=== PATIENT | female | born 1955 | race Caucasian/White ===

== ENCOUNTER 2020-10-30 04:05 | Observation (INO) ==
[2020-10-30 04:22] VITALS: BMI 47.2
[2020-10-30 04:41] LABS: BASOPHILS # (AUTO) 0.2 X10^3/uL (0.0-0.1); EOSINOPHILS # (AUTO) 0.1 x10^3/uL (0.0-0.2); EOSINOPHILS % (AUTO) 0.9 % (0.9-2.9); HEMATOCRIT 34.1 % (36.0-47.0); HEMOGLOBIN 11.5 g/dL (12.0-16.0); LYMPHOCYTES # (AUTO) 2.6 X10^3/uL (1.3-2.9); LYMPHOCYTES % (AUTO) 22.4 % (21.0-51.0); MEAN CORPUSCULAR HEMOGLOBIN 30.8 pg (27.0-34.0); MEAN CORPUSCULAR HGB CONC 33.7 g/dL (33.0-35.0); MEAN CORPUSCULAR VOLUME 91.6 fL (80.0-100.0); MEAN PLATELET VOLUME 10.3 fL (7.4-11.0); MONOCYTES % (AUTO) 8.5 % (0.0-13.0); NEUTROPHILS # (AUTO) 7.8 x10^3/uL (2.2-4.8); NEUTROPHILS % (AUTO) 66.2 % (42.0-75.0); PLATELET COUNT 266 X10^3/uL (150.0-450.0); RED BLOOD COUNT 3.72 X10^6/uL (3.5-5.4); RED CELL DISTRIBUTION WIDTH 12.6 % (11.6-16.5); WHITE BLOOD COUNT 11.8 X10^3/uL (3.6-10.0)
[2020-10-30 04:42] LABS: BILIRUBIN,URINE NEGATIVE (NEGATIVE); BLOOD/HEMOGLOBIN,URINE NEGATIVE (NEGATIVE); GLUCOSE, URINE NEGATIVE (NEGATIVE); KETONES,URINE NEGATIVE (NEGATIVE); LEUKOCYTE ESTERASE ,URINE NEGATIVE (NEGATIVE); NITRITES,URINE NEGATIVE (NEGATIVE); PROTEIN,URINE 1+ (NEGATIVE); UROBILINOGEN,URINE NORMAL (NORMAL)
[2020-10-30 04:48] LABS: APPEARANCE,URINE CLEAR (CLEAR); BACTERIA,URINE NEGATIVE /HPF (NEGATIVE); COLOR,URINE YELLOW (YELLOW); RBC,URINE 0-2 /HPF (0-3); SQUAMOUS EPITHELIAL CELL,UR RARE /HPF (NEGATIVE)
[2020-10-30 04:55] LABS: ALANINE AMINOTRANSFERASE 27 Units/L (12-78); ALBUMIN 3.9 g/dL (3.4-5.0); ALKALINE PHOSPHATASE 63 Units/L (46-116); ASPARTATE AMINO TRANSFERASE 28 Units/L (15-37); BLOOD UREA NITROGEN 40 mg/dL (7-18); CALCIUM 9.1 mg/dL (8.5-10.1); CARBON DIOXIDE 26.9 mmol/L (21-32); CHLORIDE 101 mmol/L (98-107); COR NA(FOR HYPERGLY) 140 mmol/L (136-145); CREATININE 2.04 mg/dL (0.55-1.02); SODIUM 139 mmol/L (136-145); TOTAL PROTEIN 7.4 g/dL (6.4-8.2); eGFR NON BLACK RACES 26 (>60)
--- NOTE | 2020-10-30 05:52 | CT ---
STUDY: CT HEAD WITHOUT IV CONTRASTCOMPARISON: NoneTECHNIQUE: axial images were acquired of the head without IV contrast. Coronal and sagittal images were provided. All images were reviewed in a variety of windows and levels.LIMITATIONS: Please note that CT has low sensitivity and accuracy for identifying acute infarction. In addition, there are portions of the brain that are affected by beam hardening artifact which further greatly limits identification of an acute infarct.RADIATION REDUCTION TECHNIQUE: Automated exposure control, Adjustment of the mA and/or kV according to patient size, or iterative reconstruction techniques were used.HISTORY: DIZZINESSFINDINGS: Exam is limited due to patient positioningThere is no evidence of an acute intracranial bleed.There is no evidence of a mass or midline shift.There is no evidence of an extra-axial fluid collection.The argueta-white matter differentiation is within normal limits.The visualized bones are unremarkable.The visualized sinuses are clear.The mastoid air cells are well-aerated.IMPRESSION:THERE IS NO EVIDENCE OF AN ACUTE INTRACRANIAL BLEEDElectronically signed by: Dada Garcia (Oct 30, 2020 05:50:58)
--- NOTE | 2020-10-30 05:54 | CT ---
STUDY: CT LUMBAR SPINE WITHOUT IV CONTRASTCOMPARISON: NoneTECHNIQUE: axial images were acquired of the lumbar spine without IV contrast. Coronal and sagittal images were provided. All images were reviewed in a variety of windows and levels.RADIATION REDUCTION TECHNIQUE: Automated exposure control, Adjustment of the mA and/or kV according to patient size, or iterative reconstruction techniques were used.HISTORY: BACK PAINFINDINGS:There is no evidence of an acute osseous fracture or subluxationThere are no abnormal areas of increased attenuation in the spinal canal to suggest an epidural hematoma.The visualized paraspinal muscles are unremarkable.Postsurgical changes are seen at the L4-L5 and L5-S1 level.Degenerative changes are noted.IMPRESSION:1. NO EVIDENCE OF ACUTE FRACTURE OR SUBLUXATION.Electronically signed by: Dada Garcia (Oct 30, 2020 05:52:12)
--- NOTE | 2020-10-30 07:00 | DR.SOBA ---
HPI Time Seen Time Seen by Provider: 10/30/20 06:57 Primary Care Physician Primary Care Physician: DR. SANCHEZ HPI Comment HPI Comment: Patient presented with the complaint of dizziness, low back pain and vomiting. Son says he brought patient here because she started "talking gibberish" and he became concerned. He notes that patient speaks normally at baseline. Complaints Chief Complaint:: PT STATES "I CAN'T BREATH". STATES SHE IS DIZZY AND HURTING IN HER LOWER BACK. STATES SHE HAS BEEN THROWING UP AT HOME. COVID-19 Coronavirus risk:travel/contact w/high risk person: No Has patient experienced Coronavirus symptoms: No Source History Provided: Patient Mode of Arrival Mode of Arrival: Wheelchair Timing Onset of Chief Complaint: 10/30/20 PMH PMH Past Medical History: Yes Past Medical History: Dyslipidemia, GERD, Headaches and Hypertension Past Surgical History: Yes Surgical History: Appendectomy, Cholecystectomy, [employer] Surgery and Ortho Surgery Family History History of Family Medical Conditions: Yes Family Medical History: Diabetes Mellitus, Cancer, CA, Coronary Artery Disease, Heart Failure and Hypertension Social History Does any household member use tobacco: No Do you use any recreational Drugs:: No Lives Where: Home Travel Risk Coronavirus risk:travel/contact w/high risk person: No Has patient experienced Coronavirus symptoms: No Infectious screening Have you traveled outside the country in the last 6 months?: No Isolation: Standard ROS Review of Systems Constitutional: See HPI Gastrointestinal/Abdominal: Vomiting Neurological: Dizziness Musculoskeletal: Back Pain All Other Systems: Reviewed and Negative PE Vital Signs Vitals: Temperature 98.1 F Pulse Rate 93 Respiratory Rate 10 Blood Pressure 122/87 O2 Sat by Pulse Oximetry 95 General Limitations: No Limitations General Appearance: Alert and In No Apparent Distress Head Head Exam: Normal Inspection, Atraumatic and Normocephalic Eyes Eye exam: Normal Appearance and EOMI ENT ENT Exam: Normal Exam Neck Neck Exam: Normal Inspection and Trachea Midline Chest Chest Inspection: Normal Inspection and Symmetric Chest Wall Rise Respiratory Respiratory Exam: Normal Lung Sounds Bilat Respiratory Exam: Bilateral: Clear to Auscultation Cardiovascular Cardiovascular Exam: Regular Rate, Normal Rhythm and Normal Heart Sounds Abdominal Exam Abdominal Exam: Normal Inspection, Normal Bowel Sounds and Soft Extremities Extremities Exam: Normal Inspection Back Back Exam: Normal Inspection Neurologic Neurological Exam: Alert and Oriented X3 Psychiatric Psychiatric Exam: Agitated Skin Skin Exam: Warm, Dry and Intact COURSE Reevaluation 1st: Improved (patient sleeping comfortably) 2nd: Worsened (patient agitation) Consultation Consultation Comments: spoke with Dr. Gomez who accepts this patient for admission. [facility]OR Labs Reviewed Laboratory Results Reviewed?: Yes Result Diagrams: 10/30/20 04:10 10/30/20 04:10 Laboratory: WBC 11.8 X10^3/uL (3.6-10.0) H 10/30/20 04:10 RBC 3.72 X10^6/uL (3.5-5.4) 10/30/20 04:10 Hgb 11.5 g/dL (12.0-16.0) L 10/30/20 04:10 Hct 34.1 % (36.0-47.0) L 10/30/20 04:10 MCV 91.6 fL (80.0-100.0) 10/30/20 04:10 MCH 30.8 pg (27.0-34.0) 10/30/20 04:10 MCHC 33.7 g/dL (33.0-35.0) 10/30/20 04:10 RDW 12.6 % (11.6-16.5) 10/30/20 04:10 Plt Count 266 X10^3/uL (150.0-450.0) 10/30/20 04:10 MPV 10.3 fL (7.4-11.0) 10/30/20 04:10 Neut % (Auto) 66.2 % (42.0-75.0) 10/30/20 04:10 Lymph % (Auto) 22.4 % (21.0-51.0) 10/30/20 04:10 [place] % (Auto) 8.5 % (0.0-13.0) 10/30/20 04:10 Eos % (Auto) 0.9 % (0.9-2.9) 10/30/20 04:10 Baso % (Auto) 2.0 % (0.2-1.0) H 10/30/20 04:10 Neut # (Auto) 7.8 x10^3/uL (2.2-4.8) H 10/30/20 04:10 Lymph # (Auto) 2.6 X10^3/uL (1.3-2.9) 10/30/20 04:10 [place] # (Auto) 1.0 x10^3/uL (0.3-0.8) H 10/30/20 04:10 Eos # (Auto) 0.1 x10^3/uL (0.0-0.2) 10/30/20 04:10 Baso # (Auto) 0.2 X10^3/uL (0.0-0.1) H 10/30/20 04:10 Absolute Nucleated RBC 0.0 /100WBC 10/30/20 04:10 Sodium 139 mmol/L (136-145) 10/30/20 04:10 Corrected Sodium 140 mmol/L (136-145) 10/30/20 04:10 Potassium 4.5 mmol/L (3.5-5.1) 10/30/20 04:10 Chloride 101 mmol/L (98-107) 10/30/20 04:10 Carbon Dioxide 26.9 mmol/L (21-32) 10/30/20 04:10 BUN 40 mg/dL (7-18) H 10/30/20 04:10 Creatinine 2.04 mg/dL (0.55-1.02) H 10/30/20 04:10 Est GFR (MDRD) Af Amer 32 (>60) L 10/30/20 04:10 Est GFR (MDRD) Non-Af 26 (>60) L 10/30/20 04:10 Glucose 145 mg/dL (65-99) H 10/30/20 04:10 Calcium 9.1 mg/dL (8.5-10.1) 10/30/20 04:10 Corrected Calcium TNP 10/30/20 04:10 Total Bilirubin 0.30 mg/dL (0.2-1.0) 10/30/20 04:10 AST 28 Units/L (15-37) 10/30/20 04:10 ALT 27 Units/L (12-78) 10/30/20 04:10 Alkaline Phosphatase 63 Units/L (46-116) 10/30/20 04:10 Total Protein 7.4 g/dL (6.4-8.2) 10/30/20 04:10 Albumin 3.9 g/dL (3.4-5.0) 10/30/20 04:10 Globulin 3.5 g/dL (2.5-4.5) 10/30/20 04:10 Albumin/Globulin Ratio 1.1 Ratio (1.1-2.1) 10/30/20 04:10 Specimen Type Catherized urine 10/30/20 04:33 Urine Color Yellow (YELLOW) 10/30/20 04:33 Urine Appearance Clear (CLEAR) 10/30/20 04:33 Urine pH 5.0 (5.0 - 8.0) 10/30/20 04:33 Ur Specific [place] 1.020 (1.000-1.030) 10/30/20 04:33 Urine Protein 1+ (NEGATIVE) 10/30/20 04:33 Urine Glucose (UA) Negative (NEGATIVE) 10/30/20 04:33 Urine Ketones Negative (NEGATIVE) 10/30/20 04:33 Urine Occult Blood Negative (NEGATIVE) 10/30/20 04:33 Urine Nitrite Negative (NEGATIVE) 10/30/20 04:33 Urine Bilirubin Negative (NEGATIVE) 10/30/20 04:33 Urine Urobilinogen Normal (NORMAL) 10/30/20 04:33 Ur Leukocyte Esterase Negative (NEGATIVE) 10/30/20 04:33 Urine RBC 0-2 /HPF (0-3) 10/30/20 04:33 Urine WBC 0-2 /HPF (0-5) 10/30/20 04:33 Ur Squamous Epith Cells Rare /HPF (NEGATIVE) 10/30/20 04:33 Urine Bacteria Negative /HPF (NEGATIVE) 10/30/20 04:33 Ur Culture Indicated? No/not indicated 10/30/20 04:33 Urine Opiates Screen Negative (NEG=<300) 10/30/20 04:33 Urine Methadone Screen Negative (NEG=<300) 10/30/20 04:33 Ur Barbiturates Screen Negative (NEG=<200) 10/30/20 04:33 Ur Phencyclidine Scrn Negative (NEG=<25) 10/30/20 04:33 Ur Amphetamines Screen Negative (NEG=<1000) 10/30/20 04:33 U Benzodiazepines Scrn Negative (NEG=<200) 10/30/20 04:33 Urine Cocaine Screen Negative (NEG=<300) 10/30/20 04:33 U Marijuana (THC) Screen Positive (NEG=<50) A 10/30/20 04:33 XRAY X-ray Results: STUDY: CT LUMBAR SPINE WITHOUT IV CONTRAST COMPARISON: None TECHNIQUE: axial images were acquired of the lumbar spine without IV contrast. Coronal and sagittal images were provided. All images were reviewed in a variety of windows and levels. RADIATION REDUCTION TECHNIQUE: Automated exposure control, Adjustment of the mA and/or kV according to patient size, or iterative reconstruction techniques were used. HISTORY: BACK PAIN FINDINGS: There is no evidence of an acute osseous fracture or subluxation There are no abnormal areas of increased attenuation in the spinal canal to suggest an epidural hematoma. The visualized paraspinal muscles are unremarkable. Postsurgical changes are seen at the L4-L5 and L5-S1 level. Degenerative changes are noted. IMPRESSION: 1. NO EVIDENCE OF ACUTE FRACTURE OR SUBLUXATION. Electronically signed by: Dada Garcia (Oct 30, 2020 05:52:12) STUDY: CT HEAD WITHOUT IV CONTRAST COMPARISON: None TECHNIQUE: axial images were acquired of the head without IV contrast. Coronal and sagittal images were provided. All images were reviewed in a variety of windows and levels. LIMITATIONS: Please note that CT has low sensitivity and accuracy for identifying acute infarction. In addition, there are portions of the brain that are affected by beam hardening artifact which further greatly limits identification of an acute infarct. RADIATION REDUCTION TECHNIQUE: Automated exposure control, Adjustment of the mA and/or kV according to patient size, or iterative reconstruction techniques were used. HISTORY: DIZZINESS FINDINGS: Exam is limited due to patient positioning There is no evidence of an acute intracranial bleed. There is no evidence of a mass or midline shift. There is no evidence of an extra-axial fluid collection. The argueta-white matter differentiation is within normal limits. The visualized bones are unremarkable. The visualized sinuses are clear. The mastoid air cells are well-aerated. IMPRESSION: THERE IS NO EVIDENCE OF AN ACUTE INTRACRANIAL BLEED Electronically signed by: Dada Garcia (Oct 30, 2020 05:50:58) Opioid Opioid Risk Tool Age ([place] box if 16-45): No Total: 0 Total Score Risk Category: Low Risk Copyright: [employer] predicting aberrant behaviors Diagnosis Discharge Problem: Marijuana use, Agitation Vomiting Qualifiers: Vomiting type: unspecified Vomiting Intractability: non-intractable Nausea presence: with nausea Qualified Code(s): R11.2 - Nausea with vomiting, unspecified Acute renal failure Qualifiers: Acute renal failure type: unspecified Qualified Code(s): N17.9 - Acute kidney failure, unspecified Instructions Forms: Precautions for COVID19 Patient Portal Social Distancing
[2020-10-30] MEDS ORDERED: NS 1000 ML 1,000 ML IV ONE (07:30)
[2020-10-30] MEDS ORDERED: HALDOL INJ IM ONE (07:30)
[2020-10-30] MEDS ORDERED: HALDOL INJ IM PRN (07:37)
[2020-10-30] MEDS ORDERED: NS 1000 ML 1,000 ML ONE (07:37)
[2020-10-30] MEDS ORDERED: HALDOL INJ ONE ×2 (07:37→07:39)
[2020-10-30] MEDS ORDERED: INDERAL TAB 10 MG PO ONE (08:42)
[2020-10-30] MEDS: NS 1000 ML 1,000 ML IV SCH ×2 (10:50→16:02)
--- NOTE | 2020-10-30 15:36 | DR.H&P ---
H&P History & Physical for Day of: H&P Date: 10/30/20 Chief Complaint Chief Complaint: Altered mental status Acute renal failure Shortness of breath Allergies Allergies Allergy/AdvReac Type Severity Reaction Status Date / Time codeine Allergy Verified 10/30/20 04:34 sulfamethoxazole Allergy Verified 10/30/20 04:34 [From ] trimethoprim [From ] Allergy Verified 10/30/20 04:34 History of Present Illness History of Present Illness: Pt is a 65 year old female past medical history of Hypertension, Arthritis, presenting to the ED with altered mental status. Per ED physician, son states that patient was complaining of dizziness, low back pain, and then started "talking gibberish" when he became concerned. Pt also stated having shortness of breath and was very agitated in the ED to the point she was given haldol to help manage her symptoms. On exam, pt is very sleepy, resting comfortably in bed due to medication. Labs/imaging: Wbc 11.8, Hgb 11.5, Plt 266, Na 139, K 4.5, Creatinine 2.04, Glucose 145, UA negative, Toxicology positive for marijuana, COVID-19 negative, Brain CT: THERE IS NO EVIDENCE OF AN ACUTE INTRACRANIAL BLEED. Lumbar CT: 1. NO EVIDENCE OF ACUTE FRACTURE OR SUBLUXATION. Pt was admitted for altered mental status, marijuana intoxication, and acute renal failure. Pt started on IVF NS 125ml/h, haldol prn for agitation. Will order CXR, Ekg, Troponin, D-dimer, for further evaluation and rule out of infectious process or other causes of shortness of breath. Restart home medications, avoid nephrotoxic medications. Will continue to monitor and follow up labs/imaging. Past Medical History Past Medical History: Dyslipidemia, GERD, Headaches and Hypertension Past Surgical History Surgical History: Cholecystectomy, Joint Replacement and Other Family History Family Medical History: Heart Failure Social History Does any household member use tobacco: No Alcohol Use: None Drug Use: None Medications Home Medications: codeine Allergy (Verified 10/30/20 04:34) sulfamethoxazole [From Decra] Allergy (Verified 10/30/20 04:34) trimethoprim [From Decra] Allergy (Verified 10/30/20 04:34) CONTINUE taking the following medications baclofen 20 mg PO TID 10/30/20 [History] buspirone 30 mg PO TID 10/30/20 [History] cetirizine 10 mg PO DAILY 10/30/20 [History] fenofibrate 160 mg PO DAILY 10/30/20 [History] hydrochlorothiazide 12.5 mg PO DAILY 10/30/20 [History] levocetirizine 5 mg PO DAILY 10/30/20 [History] lidocaine [ZTlido] 1 patch TRANSDERMAL DAILY 10/30/20 [History] montelukast 10 mg PO DAILY 10/30/20 [History] tapentadol [Nucynta ER] 200 mg PO BID 10/30/20 [History] tizanidine 6 mg PO TID PRN 10/30/20 [History] New Prescriptions ondansetron HCl [Zofran] 4 mg PO Q6H PRN #14 tab 10/30/20 [Rx] Labs Result Diagrams: 10/30/20 04:10 10/30/20 04:10 Labs: Laboratory WBC 11.8 X10^3/uL (3.6-10.0) H 10/30/20 04:10 RBC 3.72 X10^6/uL (3.5-5.4) 10/30/20 04:10 Hgb 11.5 g/dL (12.0-16.0) L 10/30/20 04:10 Hct 34.1 % (36.0-47.0) L 10/30/20 04:10 MCV 91.6 fL (80.0-100.0) 10/30/20 04:10 MCH 30.8 pg (27.0-34.0) 10/30/20 04:10 MCHC 33.7 g/dL (33.0-35.0) 10/30/20 04:10 RDW 12.6 % (11.6-16.5) 10/30/20 04:10 Plt Count 266 X10^3/uL (150.0-450.0) 10/30/20 04:10 MPV 10.3 fL (7.4-11.0) 10/30/20 04:10 Neut % (Auto) 66.2 % (42.0-75.0) 10/30/20 04:10 Lymph % (Auto) 22.4 % (21.0-51.0) 10/30/20 04:10 [place] % (Auto) 8.5 % (0.0-13.0) 10/30/20 04:10 Eos % (Auto) 0.9 % (0.9-2.9) 10/30/20 04:10 Baso % (Auto) 2.0 % (0.2-1.0) H 10/30/20 04:10 Neut # (Auto) 7.8 x10^3/uL (2.2-4.8) H 10/30/20 04:10 Lymph # (Auto) 2.6 X10^3/uL (1.3-2.9) 10/30/20 04:10 [place] # (Auto) 1.0 x10^3/uL (0.3-0.8) H 10/30/20 04:10 Eos # (Auto) 0.1 x10^3/uL (0.0-0.2) 10/30/20 04:10 Baso # (Auto) 0.2 X10^3/uL (0.0-0.1) H 10/30/20 04:10 Absolute Nucleated RBC 0.0 /100WBC 10/30/20 04:10 Sodium 139 mmol/L (136-145) 10/30/20 04:10 Corrected Sodium 140 mmol/L (136-145) 10/30/20 04:10 Potassium 4.5 mmol/L (3.5-5.1) 10/30/20 04:10 Chloride 101 mmol/L (98-107) 10/30/20 04:10 Carbon Dioxide 26.9 mmol/L (21-32) 10/30/20 04:10 BUN 40 mg/dL (7-18) H 10/30/20 04:10 Creatinine 2.04 mg/dL (0.55-1.02) H 10/30/20 04:10 Est GFR (MDRD) Af Amer 32 (>60) L 10/30/20 04:10 Est GFR (MDRD) Non-Af 26 (>60) L 10/30/20 04:10 Glucose 145 mg/dL (65-99) H 10/30/20 04:10 POC Glucose (mg/dL) 113 mg/dL (65-99) H 10/30/20 11:49 Calcium 9.1 mg/dL (8.5-10.1) 10/30/20 04:10 Corrected Calcium TNP 10/30/20 04:10 Total Bilirubin 0.30 mg/dL (0.2-1.0) 10/30/20 04:10 AST 28 Units/L (15-37) 10/30/20 04:10 ALT 27 Units/L (12-78) 10/30/20 04:10 Alkaline Phosphatase 63 Units/L (46-116) 10/30/20 04:10 Total Protein 7.4 g/dL (6.4-8.2) 10/30/20 04:10 Albumin 3.9 g/dL (3.4-5.0) 10/30/20 04:10 Globulin 3.5 g/dL (2.5-4.5) 10/30/20 04:10 Albumin/Globulin Ratio 1.1 Ratio (1.1-2.1) 10/30/20 04:10 Specimen Type Catherized urine 10/30/20 04:33 Urine Color Yellow (YELLOW) 10/30/20 04:33 Urine Appearance Clear (CLEAR) 10/30/20 04:33 Urine pH 5.0 (5.0 - 8.0) 10/30/20 04:33 Ur Specific [place] 1.020 (1.000-1.030) 10/30/20 04:33 Urine Protein 1+ (NEGATIVE) 10/30/20 04:33 Urine Glucose (UA) Negative (NEGATIVE) 10/30/20 04:33 Urine Ketones Negative (NEGATIVE) 10/30/20 04:33 Urine Occult Blood Negative (NEGATIVE) 10/30/20 04:33 Urine Nitrite Negative (NEGATIVE) 10/30/20 04:33 Urine Bilirubin Negative (NEGATIVE) 10/30/20 04:33 Urine Urobilinogen Normal (NORMAL) 10/30/20 04:33 Ur Leukocyte Esterase Negative (NEGATIVE) 10/30/20 04:33 Urine RBC 0-2 /HPF (0-3) 10/30/20 04:33 Urine WBC 0-2 /HPF (0-5) 10/30/20 04:33 Ur Squamous Epith Cells Rare /HPF (NEGATIVE) 10/30/20 04:33 Urine Bacteria Negative /HPF (NEGATIVE) 10/30/20 04:33 Ur Culture Indicated? No/not indicated 10/30/20 04:33 Urine Opiates Screen Negative (NEG=<300) 10/30/20 04:33 Urine Methadone Screen Negative (NEG=<300) 10/30/20 04:33 Ur Barbiturates Screen Negative (NEG=<200) 10/30/20 04:33 Ur Phencyclidine Scrn Negative (NEG=<25) 10/30/20 04:33 Ur Amphetamines Screen Negative (NEG=<1000) 10/30/20 04:33 U Benzodiazepines Scrn Negative (NEG=<200) 10/30/20 04:33 Urine Cocaine Screen Negative (NEG=<300) 10/30/20 04:33 U Marijuana (THC) Screen Positive (NEG=<50) A 10/30/20 04:33 SARS-CoV-2 (PCR) Negative (NEGATIVE) 10/30/20 07:30 Influenza Type A (PCR) Negative (NEGATIVE) 10/30/20 07:30 Influenza Type B (PCR) Negative (NEGATIVE) 10/30/20 07:30 RSV (PCR) Negative (NEGATIVE) 10/30/20 07:30 Review of Systems Constitutional: No Symptoms Reported Eyes: No Symptoms Reported ENT: No Symptoms Reported Respiratory: Shortness of Breath Cardiovascular: No Symptoms Reported Gastrointestinal: Nausea and Vomiting Genitourinary: No Symptoms Reported Musculoskeletal: Back Pain Skin: No Symptoms Reported Neurological: Confusion Physical Exam Vital Signs: Temperature 97.5 F Pulse Rate [Left Brachial] 74 Pulse Rate 100 Respiratory Rate 20 Blood Pressure [Left Arm] 147/90 Blood Pressure 150/67 O2 Sat by Pulse Oximetry 92 Oriented: Unable to test (medication sedated) Eyes: Normal Ear: Normal Nose: Normal Throat: Normal Respiratory: Diminished Throughout Cardiovascular: Normal : Normal Auscultation: Bowel Sounds: Normal Palpation: Normal Tenderness: Normal Skin: Normal Musculoskeletal: Normal Psychiatric: Anxiety and Agitation Mood Description: Anxious Affect: Anxious Speech Pattern: Inappropriate Assessment/Plan (1) Altered mental status: Status: Acute (2) Acute renal failure: Qualifiers: Acute renal failure type: unspecified Qualified Code(s): N17.9 - Acute kidney failure, unspecified Status: Acute (3) Agitation: Status: Acute Review H&P Reviewed: Yes Patient was examined?: Yes
[2020-10-30] MEDS ORDERED: BENADRYL INJ 50 MG VIAL IVP ONE (15:45)
--- NOTE | 2020-10-30 20:13 | RAD ---
HISTORYSOBSTUDYCHEST, 1 VIEWCOMPARISONNoneFINDINGSThe trachea is midline. The cardiac silhouette is enlarged. The lungs demonstrate some mild pulmonary vascular congestion suggesting early edema without focal infiltrate or effusion the bony thorax is unremarkable.IMPRESSIONCardiomegaly with mild pulmonary edema.Electronically signed by: DALILA BASSETT (Oct 30, 2020 20:10:31)
[2020-10-31] MEDS: NS 1000 ML 1,000 ML IV SCH ×2 (00:45→09:58)
[2020-10-31 05:59] LABS: BASOPHILS % (AUTO) 0.5 % (0.2-1.0); EOSINOPHILS % (AUTO) 0.3 % (0.9-2.9); HEMATOCRIT 32.9 % (36.0-47.0); HEMOGLOBIN 10.9 g/dL (12.0-16.0); LYMPHOCYTES % (AUTO) 25.4 % (21.0-51.0); MEAN CORPUSCULAR HEMOGLOBIN 30.4 pg (27.0-34.0); MEAN CORPUSCULAR HGB CONC 33.3 g/dL (33.0-35.0); MEAN CORPUSCULAR VOLUME 91.4 fL (80.0-100.0); MEAN PLATELET VOLUME 10.4 fL (7.4-11.0); MONOCYTES # (AUTO) 0.6 x10^3/uL (0.3-0.8); MONOCYTES % (AUTO) 7.5 % (0.0-13.0); NEUTROPHILS # (AUTO) 5.3 x10^3/uL (2.2-4.8); NEUTROPHILS % (AUTO) 66.3 % (42.0-75.0); PLATELET COUNT 227 X10^3/uL (150.0-450.0); RED CELL DISTRIBUTION WIDTH 12.7 % (11.6-16.5); WHITE BLOOD COUNT 8.1 X10^3/uL (3.6-10.0)
[2020-10-31 06:16] LABS: ALANINE AMINOTRANSFERASE 23 Units/L (12-78); ALBUMIN 3.1 g/dL (3.4-5.0); ALKALINE PHOSPHATASE 48 Units/L (46-116); ASPARTATE AMINO TRANSFERASE 31 Units/L (15-37); BLOOD UREA NITROGEN 17 mg/dL (7-18); CALCIUM 8.4 mg/dL (8.5-10.1); CARBON DIOXIDE 23.7 mmol/L (21-32); CHLORIDE 110 mmol/L (98-107); COR CA(FOR HYPOALB) 9.1 mg/dL (8.5-10.1); CREATININE 1.05 mg/dL (0.55-1.02); SODIUM 143 mmol/L (136-145); TOTAL PROTEIN 6.2 g/dL (6.4-8.2); eGFR NON BLACK RACES 56 (>60)
[2020-10-31] MEDS ORDERED: PriLOSEC PO SCH (09:00)
[2020-10-31] MEDS ORDERED: TAPENTADOL 200 MG PO SCH (09:00)
[2020-10-31] MEDS ORDERED: SINGULAIR TAB 10 MG PO SCH (09:00)
[2020-10-31] MEDS ORDERED: ZESTRIL TAB 20 MG PO SCH (09:20)
--- NOTE | 2020-10-31 09:34 | W.DIS.FURT ---
Summary of Discharge Discharge Summary of Date Date of Exam: 10/31/20 Admission Date Date of Admission: 10/30/20 Admission Diagnosis Patient Problems (Updated 10/30/20 @ 15:51 by Jimenez Gomez) Vomiting (Acute) R11.10 Marijuana use (Acute) F12.90 Acute renal failure (Acute) N17.9 Agitation (Acute) R45.1 Hospital Course: Pt is a 65 year old female past medical history of Hypertension, Arthritis, adm itted for altered mental status after complaining of dizziness, low back pain, and then started "talking gibberish", per son to ED physician. Pt also complained of having shortness of breath and was noted significant agitation. Pt received haldol to help manage her symptoms. Labs/imaging: Wbc 8.1, Hgb 10.9, Plt 227, Na 143, K 4, Creatinine 2.04>1.05, Glucose 105, Troponin <0.02, D-dimer 0.53, UA negative, Toxicology positive for marijuana, COVID-19 negative, CXR: Cardiomegaly with mild pulmonary edema. Brain CT: THERE IS NO EVIDENCE OF AN ACUTE INTRACRANIAL BLEED. Lumbar CT: 1. NO EVIDENCE OF ACUTE FRACTURE OR SUBLUXATION. Pt was observed, monitored overnight, and hydrated. Pt alert and oriented x 3 the next morning on discharge. Symptoms likely due to marijuana intoxication. Renal function back to baseline. Pt discharged in stable condition, instructed to follow up with pcp in 3-5 days. Vital Signs: Vital Signs (72 hours) 10/30/20 04:06 10/30/20 04:22 10/30/20 04:30 Temperature 98.1 F Pulse Rate 111 H 109 H 110 H Pulse Rate [Left Brachial] Respiratory Rate 16 54 H 47 H Blood Pressure 122/87 Blood Pressure [Left Arm] O2 Sat by Pulse Oximetry 100 92 L 96 10/30/20 04:45 10/30/20 05:02 10/30/20 05:37 Temperature Pulse Rate 91 H 112 H 97 H Pulse Rate [Left Brachial] Respiratory Rate 11 L 28 H 16 Blood Pressure Blood Pressure [Left Arm] O2 Sat by Pulse Oximetry 96 99 10/30/20 05:45 10/30/20 06:00 10/30/20 06:15 Temperature Pulse Rate 93 H 91 H 97 H Pulse Rate [Left Brachial] Respiratory Rate 10 L 9 L 18 Blood Pressure Blood Pressure [Left Arm] O2 Sat by Pulse Oximetry 95 98 99 10/30/20 06:30 10/30/20 06:45 10/30/20 07:00 Temperature Pulse Rate 85 85 81 Pulse Rate [Left Brachial] Respiratory Rate 10 L 19 15 Blood Pressure Blood Pressure [Left Arm] O2 Sat by Pulse Oximetry 98 96 97 10/30/20 07:15 10/30/20 07:30 10/30/20 07:49 Temperature Pulse Rate 81 123 H 110 H Pulse Rate [Left Brachial] Respiratory Rate 18 51 H 56 H Blood Pressure Blood Pressure [Left Arm] O2 Sat by Pulse Oximetry 98 78 L 100 10/30/20 08:00 10/30/20 08:05 10/30/20 08:15 Temperature 97.6 F Pulse Rate 102 H 101 H Pulse Rate [Left Brachial] 88 Respiratory Rate 22 35 H 46 H Blood Pressure Blood Pressure [Left Arm] 147/90 O2 Sat by Pulse Oximetry 100 10/30/20 08:42 10/30/20 08:45 10/30/20 08:46 Temperature Pulse Rate 94 H 100 H 100 H Pulse Rate [Left Brachial] Respiratory Rate 60 H 27 H 35 H Blood Pressure 150/67 Blood Pressure [Left Arm] O2 Sat by Pulse Oximetry 81 L 81 L 10/30/20 09:31 10/30/20 12:00 10/30/20 16:00 Temperature 97.5 F L 98.3 F Pulse Rate Pulse Rate [Left Brachial] 74 69 Respiratory Rate 20 13 Blood Pressure Blood Pressure [Left Arm] 177/84 O2 Sat by Pulse Oximetry 100 92 L 100 10/30/20 20:00 10/31/20 00:00 10/31/20 04:00 Temperature 98.8 F 98.2 F 98.3 F Pulse Rate Pulse Rate [Left Brachial] 81 65 85 Respiratory Rate 14 18 16 Blood Pressure Blood Pressure [Left Arm] 159/86 196/84 194/86 O2 Sat by Pulse Oximetry 98 99 100 Labs: Laboratory Last Values WBC 8.1 X10^3/uL (3.6-10.0) 10/31/20 05:34 RBC 3.60 X10^6/uL (3.5-5.4) 10/31/20 05:34 Hgb 10.9 g/dL (12.0-16.0) L 10/31/20 05:34 Hct 32.9 % (36.0-47.0) L 10/31/20 05:34 MCV 91.4 fL (80.0-100.0) 10/31/20 05:34 MCH 30.4 pg (27.0-34.0) 10/31/20 05:34 MCHC 33.3 g/dL (33.0-35.0) 10/31/20 05:34 RDW 12.7 % (11.6-16.5) 10/31/20 05:34 Plt Count 227 X10^3/uL (150.0-450.0) 10/31/20 05:34 MPV 10.4 fL (7.4-11.0) 10/31/20 05:34 Neut % (Auto) 66.3 % (42.0-75.0) 10/31/20 05:34 Lymph % (Auto) 25.4 % (21.0-51.0) 10/31/20 05:34 [place] % (Auto) 7.5 % (0.0-13.0) 10/31/20 05:34 Eos % (Auto) 0.3 % (0.9-2.9) L 10/31/20 05:34 Baso % (Auto) 0.5 % (0.2-1.0) 10/31/20 05:34 Neut # (Auto) 5.3 x10^3/uL (2.2-4.8) H 10/31/20 05:34 Lymph # (Auto) 2.0 X10^3/uL (1.3-2.9) 10/31/20 05:34 [place] # (Auto) 0.6 x10^3/uL (0.3-0.8) 10/31/20 05:34 Eos # (Auto) 0.0 x10^3/uL (0.0-0.2) 10/31/20 05:34 Baso # (Auto) 0.0 X10^3/uL (0.0-0.1) 10/31/20 05:34 Absolute Nucleated RBC 0.1 /100WBC 10/31/20 05:34 D-Dimer 0.53 ug/ml (0.0-0.57) 10/30/20 16:12 Sodium 143 mmol/L (136-145) 10/31/20 05:34 Corrected Sodium TNP 10/31/20 05:34 Potassium 4.0 mmol/L (3.5-5.1) 10/31/20 05:34 Chloride 110 mmol/L (98-107) H 10/31/20 05:34 Carbon Dioxide 23.7 mmol/L (21-32) 10/31/20 05:34 BUN 17 mg/dL (7-18) 10/31/20 05:34 Creatinine 1.05 mg/dL (0.55-1.02) H 10/31/20 05:34 Est GFR (MDRD) Af Amer > 60 (>60) 10/31/20 05:34 Est GFR (MDRD) Non-Af 56 (>60) L 10/31/20 05:34 Glucose 105 mg/dL (65-99) H 10/31/20 05:34 POC Glucose (mg/dL) 103 mg/dL (65-99) H 10/31/20 05:47 Calcium 8.4 mg/dL (8.5-10.1) L 10/31/20 05:34 Corrected Calcium 9.1 mg/dL (8.5-10.1) 10/31/20 05:34 Total Bilirubin 0.40 mg/dL (0.2-1.0) 10/31/20 05:34 AST 31 Units/L (15-37) 10/31/20 05:34 ALT 23 Units/L (12-78) 10/31/20 05:34 Alkaline Phosphatase 48 Units/L (46-116) 10/31/20 05:34 Troponin I < 0.02 ng/mL (0-1.5) 10/30/20 16:12 Total Protein 6.2 g/dL (6.4-8.2) L 10/31/20 05:34 Albumin 3.1 g/dL (3.4-5.0) L 10/31/20 05:34 Globulin 3.1 g/dL (2.5-4.5) 10/31/20 05:34 Albumin/Globulin Ratio 1.0 Ratio (1.1-2.1) L 10/31/20 05:34 Specimen Type Catherized urine 10/30/20 04:33 Urine Color Yellow (YELLOW) 10/30/20 04:33 Urine Appearance Clear (CLEAR) 10/30/20 04:33 Urine pH 5.0 (5.0 - 8.0) 10/30/20 04:33 Ur Specific [place] 1.020 (1.000-1.030) 10/30/20 04:33 Urine Protein 1+ (NEGATIVE) 10/30/20 04:33 Urine Glucose (UA) Negative (NEGATIVE) 10/30/20 04:33 Urine Ketones Negative (NEGATIVE) 10/30/20 04:33 Urine Occult Blood Negative (NEGATIVE) 10/30/20 04:33 Urine Nitrite Negative (NEGATIVE) 10/30/20 04:33 Urine Bilirubin Negative (NEGATIVE) 10/30/20 04:33 Urine Urobilinogen Normal (NORMAL) 10/30/20 04:33 Ur Leukocyte Esterase Negative (NEGATIVE) 10/30/20 04:33 Urine RBC 0-2 /HPF (0-3) 10/30/20 04:33 Urine WBC 0-2 /HPF (0-5) 10/30/20 04:33 Ur Squamous Epith Cells Rare /HPF (NEGATIVE) 10/30/20 04:33 Urine Bacteria Negative /HPF (NEGATIVE) 10/30/20 04:33 Ur Culture Indicated? No/not indicated 10/30/20 04:33 Urine Opiates Screen Negative (NEG=<300) 10/30/20 04:33 Urine Methadone Screen Negative (NEG=<300) 10/30/20 04:33 Ur Barbiturates Screen Negative (NEG=<200) 10/30/20 04:33 Ur Phencyclidine Scrn Negative (NEG=<25) 10/30/20 04:33 Ur Amphetamines Screen Negative (NEG=<1000) 10/30/20 04:33 U Benzodiazepines Scrn Negative (NEG=<200) 10/30/20 04:33 Urine Cocaine Screen Negative (NEG=<300) 10/30/20 04:33 U Marijuana (THC) Screen Positive (NEG=<50) A 10/30/20 04:33 SARS-CoV-2 (PCR) Negative (NEGATIVE) 10/30/20 07:30 Influenza Type A (PCR) Negative (NEGATIVE) 10/30/20 07:30 Influenza Type B (PCR) Negative (NEGATIVE) 10/30/20 07:30 RSV (PCR) Negative (NEGATIVE) 10/30/20 07:30 Reason For Visit: ACUTE RENAL FAILURE, AGITATION Discharge Date Discharge Date: 10/31/20 Discharge Diagnosis All Active Problems (Updated 10/30/20 @ 15:51 by Jimenez Gomez) Altered mental status (Acute) Esophagitis (Acute) GERD (gastroesophageal reflux disease) (Acute) Abdominal pain (Acute) Vomiting (Acute) Marijuana use (Acute) Acute renal failure (Acute) Agitation (Acute) Plan of Treatment: Continue with present treatment and follow up plan. Pt is to keep follow up appointment as instructed and take medications as ordered. Discharge Medications Discharge Medications: codeine Allergy (Verified 10/30/20 04:34) sulfamethoxazole [From Decra] Allergy (Verified 10/30/20 04:34) trimethoprim [From Decra] Allergy (Verified 10/30/20 04:34) CONTINUE taking the following medications Nucynta ER 200 mg PO BID 10/30/20 [History] ZTlido 1 patch TRANSDERMAL DAILY 10/30/20 [History] baclofen 20 mg PO TID 10/30/20 [History] buspirone 30 mg PO TID 10/30/20 [History] cetirizine 10 mg PO DAILY 10/30/20 [History] fenofibrate 160 mg PO DAILY 10/30/20 [History] hydrochlorothiazide 12.5 mg PO DAILY 10/30/20 [History] levocetirizine 5 mg PO DAILY 10/30/20 [History] montelukast 10 mg PO DAILY 10/30/20 [History] tizanidine 6 mg PO TID PRN 10/30/20 [History] New Prescriptions ondansetron HCl [Zofran] 4 mg PO Q6H PRN #14 tab 10/30/20 [Rx] Follow up and Referral Follow Up: 1 Week Discharge Disposition Discharge Disposition: Home Discharge Condition: Stable Discharge Plan Discharge Plan Hospital Course: Pt is a 65 year old female past medical history of Hypertension, Arthritis, admitted for altered mental status after complaining of dizziness, low back pain, and then started "talking gibberish", per son to ED physician. Pt also complained of having shortness of breath and was noted significant agitation. Pt received haldol to help manage her symptoms. Labs/imaging: Wbc 8.1, Hgb 10.9, Plt 227, Na 143, K 4, Creatinine 2.04>1.05, Glucose 105, Troponin <0.02, D-dimer 0.53, UA negative, Toxicology positive for marijuana, COVID-19 negative, CXR: Cardiomegaly with mild pulmonary edema. Brain CT: THERE IS NO EVIDENCE OF AN ACUTE INTRACRANIAL BLEED. Lumbar CT: 1. NO EVIDENCE OF ACUTE FRACTURE OR SUBLUXATION. Pt was observed, monitored overnight, and hydrated. Pt alert and oriented x 3 the next morning on discharge. Symptoms likely due to marijuana intoxication. Renal function back to baseline. Pt discharged in stable condition, instructed to follow up with pcp in 3-5 days. Patient Disposition: 01 HOME, SELF-CARE Condition: Stable Health Concerns: Post Hospitalization: new medications and changes needed to prevent readmission or further decline. Pt educated and given instructions on all concerns. Care Plan Goals: Problem: Fluid Volume Deficit Goal: Maintain/Improved Adequate hydration. Instructions: Follow provided instructions. Follow up with primary physician as directed. Contact primary care physician or report to the closest Emergency Room if condition worsens. Plan of Treatment: Continue with present treatment and follow up plan. Pt is to keep follow up appointment as instructed and take medications as ordered. Prescriptions: New ondansetron HCl [Zofran] 4 mg tablet 4 mg PO Q6H PRN (Reason: nausea and vomiting) Qty: 14 RF: 0 Continued lisinopril 20 MG tablet 1 tab PO DAILY RF: 0 omeprazole 20 MG capsule,delayed release(DR/EC) 1 cap PO DAILY RF: 0 cetirizine 10 mg tablet 10 mg PO DAILY RF: 0 tizanidine 4 mg tablet 6 mg PO TID PRNRF: 0 baclofen 20 mg tablet 20 mg PO TID RF: 0 buspirone 30 mg tablet 30 mg PO TID RF: 0 montelukast 10 mg tablet 10 mg PO DAILY RF: 0 fenofibrate 160 mg tablet 160 mg PO DAILY RF: 0 hydrochlorothiazide 12.5 mg tablet 12.5 mg PO DAILY RF: 0 levocetirizine 5 mg tablet 5 mg PO DAILY RF: 0 Nucynta ER 200 mg tablet extended release 12 hr 200 mg PO BID RF: 0 ZTlido 1.8 % adhesive patch,medicated 1 patch transdermal DAILY RF: 0 Orders to Discharge Patient Discharge Orders: Discharge (Routine); Ordered 10/31/20 Ordered By: Jimenez Gomez Follow ups/Referrals Follow ups/Referrals: Lucio Esparza [Primary Care Provider] - 3 days Instructions Instructions: Acute Kidney Injury, Adult Activity Restrictions/Additional Instructions: DRINK PLENTY OF FLUIDS. Stand Alone Forms: Excuse From Work or School, Precautions for COVID19, Patient Portal, Social Distancing
[2020-10-31 09:57] VITALS: BP 140/81
[2020-11-01] MEDS ORDERED: HYDROCHLOROTHIAZIDE 12.5 MG CAP PO SCH (09:00)
== END 2020-10-31 10:15 | disposition home or self-care (01) ==
LOC: SUPCPDRO → ER 04:05 → MED/SURG 04:05
PROVIDERS: ADMIT Family Medicine; ATTEND Family Medicine
DX: Z20.822 Contact with and (suspected) exposure to COVID-19; R11.10 Vomiting, unspecified; F12.10 Cannabis abuse, uncomplicated; R45.1 Restlessness and agitation; N17.8 Other acute kidney failure; K21.9 Gastro-esophageal reflux disease without esophagitis; R41.82 Altered mental status, unspecified; E78.2 Mixed hyperlipidemia; I10 Essential (primary) hypertension; R06.02 Shortness of breath

== ENCOUNTER 2020-12-07 11:54 | Inpatient (IN) ==
--- NOTE | 2020-12-07 12:09 | DR.AMS ---
HPI Time Seen Time Seen by Provider: 12/07/20 12:09 PMH PMH Past Medical History: Dyslipidemia, GERD, Headaches and Hypertension Past Surgical History: Yes Surgical History: Cholecystectomy, Joint Replacement and Other Family History Family Medical History: Heart Failure Social History Do you use any recreational Drugs:: No ROS Review of Systems Constitutional: No Symptoms Reported Eyes: No Symptoms Reported ENTM: No Symptoms Reported Respiratoy: No Symptoms Reported Cardiovascular: No Symptoms Reported Gastrointestinal/Abdominal: No Symptoms Reported Genitourinary: No Symptoms Reported Neurological: No Symptoms Reported Musculoskeletal: No Symptoms Reported Integumentary: No Symptoms Reported Hematologic/Lymphatic: No Symptoms Reported Endocrine: No Symptoms Reported Psychiatric: No Symptoms Reported All Other Systems: Reviewed and Negative PE Vitals Vital Signs: Temp Pulse Resp BP BP Pulse Ox 12/07/20 16:15 118 H 12/07/20 16:00 109 H 32 H 12/07/20 15:58 107 H 18 127/88 97 12/07/20 15:57 119 H 127/88 12/07/20 15:45 117 H 12/07/20 15:30 111 H 12/07/20 15:15 119 H 12/07/20 15:00 113 H 12/07/20 14:45 110 H 12/07/20 14:30 116 H 12/07/20 14:15 116 H 12/07/20 14:00 116 H 12/07/20 13:52 111 H 18 136/101 98 12/07/20 13:45 110 H 139/106 12/07/20 13:30 112 H 12/07/20 13:15 114 H 12/07/20 13:04 111 H 12/07/20 12:45 110 H 12/07/20 12:30 122 H 12/07/20 12:28 112 H 96 12/07/20 12:00 98.4 F 113 H 20 98 10/31/20 08:00 140/81 General Limitations: Language Barrier General Appearance: Alert Head Head Exam: Normal Inspection Eyes Eye exam: Normal Appearance ENT ENT Exam: Normal Exam External Ear Exam: Normal External Inspection Nose Exam: Normal Nose Exam Mouth Exam: Normal Inspection Throat Exam: Normal Inspection Neck Neck Exam: Normal Inspection Chest Chest Inspection: Normal Inspection Respiratory Respiratory Exam: Normal Lung Sounds Bilat Cardiovascular Cardiovascular Exam: Regular Rate and Normal Rhythm Abdominal Exam Abdominal Exam: Normal Inspection, Normal Bowel Sounds and Soft Extremities Extremities Exam: Normal Inspection Back Back Exam: Normal Inspection Neurological Neurological Exam: Alert and Oriented X3 Psychological Psychiatric Exam: Normal Affect and Normal Mood Skin Skin Exam: Warm, Dry, Intact and Normal Color ROR Labs Reviewed Result Diagrams: 12/07/20 12:03 12/07/20 12:03 Laboratory: WBC 17.0 X10^3/uL (3.6-10.0) H 12/07/20 12:03 RBC 4.22 X10^6/uL (3.5-5.4) 12/07/20 12:03 Hgb 12.5 g/dL (12.0-16.0) 12/07/20 12:03 Hct 36.9 % (36.0-47.0) 12/07/20 12:03 MCV 87.5 fL (80.0-100.0) 12/07/20 12:03 MCH 29.7 pg (27.0-34.0) 12/07/20 12:03 MCHC 34.0 g/dL (33.0-35.0) 12/07/20 12:03 RDW 13.2 % (11.6-16.5) 12/07/20 12:03 Plt Count 341 X10^3/uL (150.0-450.0) 12/07/20 12:03 MPV 10.8 fL (7.4-11.0) 12/07/20 12:03 Neut % (Auto) 77.3 % (42.0-75.0) H 12/07/20 12:03 Lymph % (Auto) 13.9 % (21.0-51.0) L 12/07/20 12:03 [place] % (Auto) 8.4 % (0.0-13.0) 12/07/20 12:03 Eos % (Auto) 0.0 % (0.9-2.9) L 12/07/20 12:03 Baso % (Auto) 0.4 % (0.2-1.0) 12/07/20 12:03 Neut # (Auto) 13.2 x10^3/uL (2.2-4.8) H 12/07/20 12:03 Lymph # (Auto) 2.4 X10^3/uL (1.3-2.9) 12/07/20 12:03 [place] # (Auto) 1.4 x10^3/uL (0.3-0.8) H 12/07/20 12:03 Eos # (Auto) 0.0 x10^3/uL (0.0-0.2) 12/07/20 12:03 Baso # (Auto) 0.1 X10^3/uL (0.0-0.1) 12/07/20 12:03 Absolute Nucleated RBC 0.0 /100WBC 12/07/20 12:03 Sodium 129 mmol/L (136-145) L 12/07/20 12:03 Corrected Sodium 130 mmol/L (136-145) L 12/07/20 12:03 Potassium 4.8 mmol/L (3.5-5.1) 12/07/20 12:03 Chloride 90 mmol/L (98-107) L 12/07/20 12:03 Carbon Dioxide 22.5 mmol/L (21-32) 12/07/20 12:03 BUN 77 mg/dL (7-18) H 12/07/20 12:03 Creatinine 4.71 mg/dL (0.55-1.02) H 12/07/20 12:03 Est GFR (MDRD) Af Amer 12 (>60) L 12/07/20 12:03 Est GFR (MDRD) Non-Af 10 (>60) L 12/07/20 12:03 Glucose 122 mg/dL (65-99) H 12/07/20 12:03 POC Glucose (mg/dL) 126 mg/dL (65-99) H 12/07/20 12:12 Lactic Acid 1.5 mmol/L (0.4-2.0) 12/07/20 12:03 Calcium 9.8 mg/dL (8.5-10.1) 12/07/20 12:03 Corrected Calcium TNP 12/07/20 12:03 Magnesium 2.3 mg/dL (1.7-2.9) 12/07/20 12:03 Total Bilirubin 0.70 mg/dL (0.2-1.0) 12/07/20 12:03 AST 82 Units/L (15-37) H 12/07/20 12:03 ALT 40 Units/L (12-78) 12/07/20 12:03 Alkaline Phosphatase 63 Units/L (46-116) 12/07/20 12:03 Creatine Kinase 1347 Units/L (26-192) H 12/07/20 12:03 CK-MB (CK-2) 19.9 ng/mL (0-4.0) H* 12/07/20 12:03 CK/CKMB % Calc 1.5 % (<4) 12/07/20 12:03 Troponin I 0.02 ng/mL (0-1.5) 12/07/20 12:03 B-Natriuretic Peptide 91.1 pg/mL (0-79) H 12/07/20 12:03 Total Protein 8.2 g/dL (6.4-8.2) 12/07/20 12:03 Albumin 4.4 g/dL (3.4-5.0) 12/07/20 12:03 Globulin 3.8 g/dL (2.5-4.5) 12/07/20 12:03 Albumin/Globulin Ratio 1.2 Ratio (1.1-2.1) 12/07/20 12:03 Amylase 12 Units/L (25-115) L 12/07/20 12:03 Lipase 168 Units/L (73-393) 12/07/20 12:03 Specimen Type Catherized urine 12/07/20 13:25 Urine Color Yellow (YELLOW) 12/07/20 13:25 Urine Appearance Clear (CLEAR) 12/07/20 13:25 Urine pH 5.0 (5.0 - 8.0) 12/07/20 13:25 Ur Specific [place] 1.020 (1.000-1.030) 12/07/20 13:25 Urine Protein Negative (NEGATIVE) 12/07/20 13:25 Urine Glucose (UA) Negative (NEGATIVE) 12/07/20 13:25 Urine Ketones Negative (NEGATIVE) 12/07/20 13:25 Urine Occult Blood Negative (NEGATIVE) 12/07/20 13:25 Urine Nitrite Negative (NEGATIVE) 12/07/20 13:25 Urine Bilirubin Negative (NEGATIVE) 12/07/20 13:25 Urine Urobilinogen Normal (NORMAL) 12/07/20 13:25 Ur Leukocyte Esterase Negative (NEGATIVE) 12/07/20 13:25 Urine Opiates Screen Negative (NEG=<300) 12/07/20 13:25 Urine Methadone Screen Negative (NEG=<300) 12/07/20 13:25 Ur Barbiturates Screen Negative (NEG=<200) 12/07/20 13:25 Ur Phencyclidine Scrn Negative (NEG=<25) 12/07/20 13:25 Ur Amphetamines Screen Positive (NEG=<1000) A 12/07/20 13:25 U Benzodiazepines Scrn Negative (NEG=<200) 12/07/20 13:25 Urine Cocaine Screen Negative (NEG=<300) 12/07/20 13:25 U Marijuana (THC) Screen Positive (NEG=<50) A 12/07/20 13:25 Opioid Opioid Risk Tool Age ([place] box if 16-45): No Total: 0 Total Score Risk Category: Low Risk Copyright: Iraj PEREA predicting aberrant behaviors Instructions Forms: Precautions for COVID19 [facility] Patient Portal Social Distancing
[2020-12-07] MEDS ORDERED: NS 1000 ML 1,000 ML ONE ×2 (12:33→21:30)
[2020-12-07 12:37] VITALS: BMI 33.3
[2020-12-07] MEDS: NS 1000 ML 1,000 ML IV SCH ×2 (12:41→21:34)
[2020-12-07] MEDS ORDERED: BENADRYL INJ 50 MG VIAL ONE (12:45)
[2020-12-07 12:47] LABS: BASOPHILS # (AUTO) 0.1 X10^3/uL (0.0-0.1); BASOPHILS % (AUTO) 0.4 % (0.2-1.0); HEMATOCRIT 36.9 % (36.0-47.0); HEMOGLOBIN 12.5 g/dL (12.0-16.0); LYMPHOCYTES # (AUTO) 2.4 X10^3/uL (1.3-2.9); LYMPHOCYTES % (AUTO) 13.9 % (21.0-51.0); MEAN CORPUSCULAR HEMOGLOBIN 29.7 pg (27.0-34.0); MEAN CORPUSCULAR VOLUME 87.5 fL (80.0-100.0); MEAN PLATELET VOLUME 10.8 fL (7.4-11.0); MONOCYTES # (AUTO) 1.4 x10^3/uL (0.3-0.8); MONOCYTES % (AUTO) 8.4 % (0.0-13.0); NEUTROPHILS # (AUTO) 13.2 x10^3/uL (2.2-4.8); NEUTROPHILS % (AUTO) 77.3 % (42.0-75.0); PLATELET COUNT 341 X10^3/uL (150.0-450.0); RED BLOOD COUNT 4.22 X10^6/uL (3.5-5.4); RED CELL DISTRIBUTION WIDTH 13.2 % (11.6-16.5)
[2020-12-07] MEDS ORDERED: BENADRYL INJ 50 MG VIAL IVP ONE (12:52)
--- NOTE | 2020-12-07 12:52 | RAD ---
HISTORYShortness of breathSTUDYChest AP [id number]/31/2021FINDINGSHeart is minimally enlarged. No congestive heart failure is noted . No acute alveolar infiltrates or pleural effusions are identified. Bony thorax is unremarkable.IMPR ESSIONMinimal cardiomegaly without congestive heart failureNo infiltratesElectronically signed by: SARAH CHAVEZ (Dec 07, 2020 12:50:59)
--- NOTE | 2020-12-07 13:14 | CT ---
HISTORYAltered mental status, confusionSTUDYCT brain without contrastCOMPARISONJuly 2020TECHNIQUEMultiple axial images of the brain were obtained from the skull base to the vertex [without] administration of IV contrast.Dose reduction techniques including Automated Exposure Control (AEC) and adjustment of mA and kV were utlized.FINDINGSPatient motion reduces diagnostic accuracy. [No acute intraparenchymal hemorrhage or mass can be identified.] [No extra-axial fluid collections are seen.] [No alteration in the attenuation of the brain parenchyma can be identified to suggest acute or subacute ischemic change.] [The ventricular system is symmetric and nondilated.] [The extracranial structures are grossly unremarkable.]IMPRESSION[No acute intracranial process can be identified.]Electronically signed by: DALILA BASSETT (Dec 07, 2020 13:12:18)
[2020-12-07 13:25] LABS: ALANINE AMINOTRANSFERASE 40 Units/L (12-78); ALBUMIN 4.4 g/dL (3.4-5.0); ALKALINE PHOSPHATASE 63 Units/L (46-116); AMYLASE 12 Units/L (25-115); ASPARTATE AMINO TRANSFERASE 82 Units/L (15-37); BLOOD UREA NITROGEN 77 mg/dL (7-18); CALCIUM 9.8 mg/dL (8.5-10.1); CARBON DIOXIDE 22.5 mmol/L (21-32); CHLORIDE 90 mmol/L (98-107); COR NA(FOR HYPERGLY) 130 mmol/L (136-145); CREATININE 4.71 mg/dL (0.55-1.02); LIPASE 168 Units/L (73-393); SODIUM 129 mmol/L (136-145); TOTAL PROTEIN 8.2 g/dL (6.4-8.2); TROPONIN I 0.02 ng/mL (0-1.5); eGFR NON BLACK RACES 10 (>60)
[2020-12-07 13:26] LABS: LACTIC ACID 1.5 mmol/L (0.4-2.0)
[2020-12-07 13:32] LABS: CKMB % 1.5 % (<4); CREATINE KINASE 1347 Units/L (26-192); CREATINE KINASE MB 19.9 ng/mL (0-4.0)
[2020-12-07 13:43] LABS: BILIRUBIN,URINE NEGATIVE (NEGATIVE); BLOOD/HEMOGLOBIN,URINE NEGATIVE (NEGATIVE); GLUCOSE, URINE NEGATIVE (NEGATIVE); KETONES,URINE NEGATIVE (NEGATIVE); LEUKOCYTE ESTERASE ,URINE NEGATIVE (NEGATIVE); NITRITES,URINE NEGATIVE (NEGATIVE); PROTEIN,URINE NEGATIVE (NEGATIVE); UROBILINOGEN,URINE NORMAL (NORMAL)
[2020-12-07 14:12] LABS: APPEARANCE,URINE CLEAR (CLEAR); COLOR,URINE YELLOW (YELLOW)
[2020-12-07] MEDS ORDERED: ATIVAN INJ 2 MG VIAL ONE ×3 (14:27→23:35)
[2020-12-07] MEDS ORDERED: ATIVAN INJ 2 MG VIAL IVP ONE (14:32)
[2020-12-07] MEDS: ATIVAN INJ 2 MG VIAL IVP PRN ×2 (17:24→23:40)
[2020-12-08] MEDS ORDERED: ATIVAN INJ 2 MG VIAL ONE ×3 (04:08→20:21)
[2020-12-08] MEDS ORDERED: NS 1000 ML 1,000 ML ONE ×3 (04:12→20:21)
[2020-12-08] MEDS: ATIVAN INJ 2 MG VIAL IVP PRN ×3 (04:13→20:21)
[2020-12-08] MEDS: NS 1000 ML 1,000 ML IV SCH ×3 (05:17→20:39)
[2020-12-08 06:16] LABS: BASOPHILS % (AUTO) 0.2 % (0.2-1.0); EOSINOPHILS % (AUTO) 0.2 % (0.9-2.9); HEMATOCRIT 36.2 % (36.0-47.0); HEMOGLOBIN 12.3 g/dL (12.0-16.0); LYMPHOCYTES # (AUTO) 2.5 X10^3/uL (1.3-2.9); LYMPHOCYTES % (AUTO) 23.1 % (21.0-51.0); MEAN CORPUSCULAR HEMOGLOBIN 30.1 pg (27.0-34.0); MEAN CORPUSCULAR VOLUME 88.5 fL (80.0-100.0); MEAN PLATELET VOLUME 10.8 fL (7.4-11.0); MONOCYTES % (AUTO) 9.4 % (0.0-13.0); NEUTROPHILS # (AUTO) 7.3 x10^3/uL (2.2-4.8); NEUTROPHILS % (AUTO) 67.1 % (42.0-75.0); PLATELET COUNT 238 X10^3/uL (150.0-450.0); RED BLOOD COUNT 4.09 X10^6/uL (3.5-5.4); RED CELL DISTRIBUTION WIDTH 13.1 % (11.6-16.5); WHITE BLOOD COUNT 10.9 X10^3/uL (3.6-10.0)
[2020-12-08 06:58] LABS: ALANINE AMINOTRANSFERASE 38 Units/L (12-78); ALBUMIN 3.5 g/dL (3.4-5.0); ALKALINE PHOSPHATASE 55 Units/L (46-116); ASPARTATE AMINO TRANSFERASE 84 Units/L (15-37); BLOOD UREA NITROGEN 60 mg/dL (7-18); CALCIUM 8.9 mg/dL (8.5-10.1); CARBON DIOXIDE 23.7 mmol/L (21-32); CHLORIDE 100 mmol/L (98-107); CREATININE 2.63 mg/dL (0.55-1.02); SODIUM 136 mmol/L (136-145); TOTAL PROTEIN 6.8 g/dL (6.4-8.2); TROPONIN I < 0.02 ng/mL (0-1.5); eGFR NON BLACK RACES 19 (>60)
[2020-12-08 07:00] LABS: CKMB % 1.3 % (<4); CREATINE KINASE 1142 Units/L (26-192); CREATINE KINASE MB 15.1 ng/mL (0-4.0)
--- NOTE | 2020-12-08 14:56 | DR.H&P ---
H&P - History & Physical for Day of: H&P Date: 12/07/20 - Chief Complaint Chief Complaint: ALTERED MENTAL STATUS, CONFUSION, RIGHT UPPER RIB PAIN - History of Present Illness History of Present Illness: IS A 65 YEAR OLD PATIENT OF [employer]. SHE PRESENTED TO THE ER WITH FAMILY REPORTING THAT PATIENT HAS BEEN CONFUSED AND AGITATED FOR THE PAST TWO DAYS. DAUGHTER REPORTS THAT SYMPTOMS ARE GETTING WORSE. PATIENT COMPLAINTS OF RIGHT UPPER RIB PAIN AND ALSO HAS A BRUISE TO THE RIGHT ELBOW. DAUGHTER REPORTS THAT PATIENT HAS HAD SIMILAR SYMPTOMS IN THE PAST AND HAD A KIDNEY INFECTION AT THAT TIME. PATIENT DESCRIBES PAIN FRANCIA P AND RATES IT A /10. ON ARRIVAL TO THE ER, VITALS WERE 98.4-20-113-98%-139/96. LABS WERE OBTAINED. ABNORMAL LAB VALUES INCLUDED THE FOLLOWING: WBC 17.0, SODIUM 129, CHLORIDE 90, BUN 77, CREATININE 4.71, GLUCOSE 122, AST 82, CREATINE KINASE 1347, CK-MB 19.9, BNP 91.1, AMYLASE 12. TOXICOLOGY POSITIVE FOR AMPHETAMINES AND MARIJUANA. URINALYSIS UNREMARKABLE. COVID, INFLUENZA, AND RSV NEGATIVE. BLOOD CULTURES WERE SET UP. A CHEST XRAY WAS OBTAINED AND REVEALED: Minimal cardiomegaly without congestive heart failure. No infiltrates. BRAIN CT OBTAINED AND REVEALED: No acute intracranial process can be identified. EKG REVEALED: SINUS TACHYCARDIA WITH HR 110. IN THE ER, SHE WAS GIVEN BENADRYL 25MG IV X 1, ATIVAN 0.5MG IV X 1. A HARMON CATHETER WAS INSERTED FOR ACCURATE MEASUREMENT OF OUTPUT. SHE WAS ADMITTED TO THE ER FOR FURTHER EVALUATION AND TREATMENT OF ACUTE RENAL FAILURE, RHABDOMYOLYSIS, AND AMS. SHE WAS STARTED ON NORMAL SALINE AT 125ML/HR AND ATIVAN 1MG IV Q6H PRN. WE WILL REVIEW HER HOME MEDICATIONS. OTHERWISE, WE PLAN TO FOLLOW UP WITH AM LABS AND CONTINUE TO MONITOR. TIME SPENT ON CLINICAL ASSESSMENT, REVIEWING LABS AND IMAGING, DECISION MAKING, AND DOCUMENTATION GREATER THAN 75 MINUTES. - Past Medical History Past Medical History: Hypertension, Dyslipidemia, GERD, Headaches - Past Surgical History Surgical History: Cholecystectomy, Joint Replacement, Other - Family History Family Medical History: Heart Failure - Social History Does patient currently use any type of tobacco product: No Have you used tobacco products in the last 12 months: No Type of Tobacco Use: None Does any household member use tobacco: No Alcohol Use: None Drug Use: None - Medications Home Medications: codeine Allergy (Verified 12/07/20 11:55) sulfamethoxazole [From ] Allergy (Verified 12/07/20 11:55) trimethoprim [From ] Allergy (Verified 12/07/20 11:55) CONTINUE taking the following medications hydroxyzine HCl 50 mg PO BID PRN 12/08/20 [History] methocarbamol 750 mg PO TID 12/08/20 [History] propranolol 40 mg PO TID PRN 12/08/20 [History] - Review of Systems Constitutional: Weakness Eyes: No Symptoms Reported ENT: No Symptoms Reported Respiratory: No Symptoms Reported Cardiovascular: No Symptoms Reported Gastrointestinal: No Symptoms Reported Genitourinary: No Symptoms Reported Musculoskeletal: See HPI, Other (RIGHT UPPER RIB PAIN ) Skin: No Symptoms Reported Neurological: Weakness, Confusion - Physical Exam Vital Signs: Temperature 98.3 F Pulse Rate [Left Brachial] 117 Pulse Rate 109 Respiratory Rate 27 Blood Pressure [Left Arm] 150/70 Blood Pressure 142/65 O2 Sat by Pulse Oximetry 98 Oriented: Normal Eyes: Normal Ear: Normal Nose: Normal Throat: Normal Respiratory: Diminished Throughout Cardiovascular: Tachycardia : Normal Auscultation: Bowel Sounds: Normal Palpation: Normal Tenderness: Normal Skin: Decreased [place] Musculoskeletal: Right (RIGHT SIDED RIB PAIN ) Psychiatric: Normal Mood Description: Calm Affect: Normal Speech Pattern: Clear - Assessment/Plan (1) Acute renal failure Qualifiers: Acute renal failure type: unspecified Qualified Code(s): N17.9 - Acute kidney failure, unspecified Status: Acute Plan: ADMIT, NORMAL SALINE AT 125ML/HR AND ATIVAN 1MG IV Q6H PRN. REVIEW HOME MEDS (2) Rhabdomyolysis Qualifiers: Rhabdomyolysis type: non-traumatic Qualified Code(s): M62.82 - Rhabdomyolysis Status: Acute (3) Altered mental status Qualifiers: Altered mental status type: transient alteration of awareness Qualified Code(s): R40.4 - Transient alteration of awareness Status: Acute - Allergies Allergies/Adverse Reactions: Allergies Allergy/AdvReac Type Severity Reaction Status Date / Time codeine Allergy Verified 12/07/20 11:55 sulfamethoxazole Allergy Verified 12/07/20 11:55 [From ] trimethoprim [From ] Allergy Verified 12/07/20 11:55
[2020-12-09] MEDS ORDERED: ATIVAN INJ 2 MG VIAL ONE (00:26)
[2020-12-09] MEDS ORDERED: AUGMENTIN 500 MG/125 MG TAB PO ONE (01:44)
[2020-12-09] MEDS ORDERED: DECADRON INJ ONE (01:44)
[2020-12-09] MEDS ORDERED: ROCEPHIN VIAL 1 GRAM ONE (01:45)
[2020-12-09] MEDS ORDERED: ADACEL or BOOSTRIX TDaP VACCINE IM ONE (01:46)
[2020-12-09] MEDS: ATIVAN INJ 2 MG VIAL IVP PRN (03:35)
[2020-12-09] MEDS: NS 1000 ML 1,000 ML IV SCH (05:27)
[2020-12-09 06:25] LABS: BASOPHILS # (AUTO) 0.1 X10^3/uL (0.0-0.1); BASOPHILS % (AUTO) 0.8 % (0.2-1.0); EOSINOPHILS # (AUTO) 0.1 x10^3/uL (0.0-0.2); EOSINOPHILS % (AUTO) 0.4 % (0.9-2.9); HEMATOCRIT 35.7 % (36.0-47.0); HEMOGLOBIN 12.1 g/dL (12.0-16.0); LYMPHOCYTES # (AUTO) 3.1 X10^3/uL (1.3-2.9); LYMPHOCYTES % (AUTO) 25.4 % (21.0-51.0); MEAN CORPUSCULAR VOLUME 88.2 fL (80.0-100.0); MEAN PLATELET VOLUME 10.8 fL (7.4-11.0); MONOCYTES # (AUTO) 1.4 x10^3/uL (0.3-0.8); MONOCYTES % (AUTO) 11.4 % (0.0-13.0); NEUTROPHILS # (AUTO) 7.5 x10^3/uL (2.2-4.8); PLATELET COUNT 279 X10^3/uL (150.0-450.0); RED BLOOD COUNT 4.04 X10^6/uL (3.5-5.4); RED CELL DISTRIBUTION WIDTH 13.1 % (11.6-16.5); WHITE BLOOD COUNT 12.1 X10^3/uL (3.6-10.0)
[2020-12-09 07:10] LABS: ALANINE AMINOTRANSFERASE 51 Units/L (12-78); ALBUMIN 3.6 g/dL (3.4-5.0); ALKALINE PHOSPHATASE 56 Units/L (46-116); ASPARTATE AMINO TRANSFERASE 78 Units/L (15-37); BLOOD UREA NITROGEN 40 mg/dL (7-18); CALCIUM 8.7 mg/dL (8.5-10.1); CARBON DIOXIDE 23.1 mmol/L (21-32); CHLORIDE 102 mmol/L (98-107); CKMB % 1.5 % (<4); COR NA(FOR HYPERGLY) 137 mmol/L (136-145); CREATINE KINASE 621 Units/L (26-192); CREATININE 1.53 mg/dL (0.55-1.02); SODIUM 137 mmol/L (136-145); TOTAL PROTEIN 7.1 g/dL (6.4-8.2); TROPONIN I < 0.02 ng/mL (0-1.5); eGFR NON BLACK RACES 36 (>60)
[2020-12-09 07:14] LABS: CREATINE KINASE MB 9.4 ng/mL (0-4.0)
[2020-12-09] MEDS ORDERED: NS 1000 ML 1,000 ML ONE ×2 (10:04→11:06)
[2020-12-09] MEDS ORDERED: NS 1000 ML 1,000 ML IV ONE ×2 (10:09→11:10)
[2020-12-09] MEDS ORDERED: ZESTRIL TAB 20 MG PO SCH (11:00)
--- NOTE | 2020-12-09 11:06 | RAD ---
HISTORYPAIN IN RIB AREA, PAIN TO RIGHT RIB UNDER BREASTSTUDYX-ray right ribs, three viewsCOMPARISONChest x-ray 12/07/2020FINDINGSHeart is normal in size. No pneumothorax or pleural effusion is seen. Tiny calcified granuloma is suspected in the right lower lung. There is a minimally displaced fracture of the right 7th rib anteriorly.IMPRESSION1. No acute cardiopulmonary disease.2. There is a minimally displaced fracture of the anterior aspect of the right 7th rib.Electronically signed by: Ghassan Rose (Dec 09, 2020 11:03:51)
[2020-12-09 12:31] VITALS: BP 139/64
== END 2020-12-09 15:40 | disposition home or self-care (01) | DRG 683 ==
LOC: OBS 11:54 → ER 11:54 → OBSVTOIN 17:21 → OBS 18:18
PROVIDERS: ADMIT Internal Medicine; ATTEND Internal Medicine
DX: Y92.9 Unspecified place or not applicable; M62.82 Rhabdomyolysis; K21.9 Gastro-esophageal reflux disease without esophagitis; F15.90 Other stimulant use, unspecified, uncomplicated; Z79.899 Other long term (current) drug therapy; N17.8 Other acute kidney failure; R07.81 Pleurodynia; X58.XXXA Exposure to other specified factors, initial encounter; Z20.822 Contact with and (suspected) exposure to COVID-19; S22.31XA Fracture of one rib, right side, initial encounter for closed fracture; E78.2 Mixed hyperlipidemia; I10 Essential (primary) hypertension; R94.31 Abnormal electrocardiogram [ECG] [EKG]; R06.02 Shortness of breath; F12.90 Cannabis use, unspecified, uncomplicated; R40.4 Transient alteration of awareness